=== PATIENT | female | born 1960 | race Caucasian/White ===

== ENCOUNTER 2024-02-20 17:38 | Emergency (ER) | payer OTHER ==
[~2024-02-20] VITALS: Ht 160 cm; Wt 59.0 kg
[~2024-02-20 17:38] MED LIST: ACET325 PO; AMLO5 PO; AMOCLA875 PO; ASPI81EC PO; ATOR40TA PO; CARB200 PO; CARB200ER PO; CARBAMAZEPINE400 M1 PO; CLOP75 PO; CYCL10 PO; DIAZ5 PO; METO25 PO; ONDA4ODT MM; ONDA8ODT MM; OXYC10TA19 PO; RXONDA4ODT MM; STOMUL PO; SULTRIDS PO; TRAM50 PO
[2024-02-20 23:00] VITALS: BP 160/85
== END 2024-02-20 23:12 | disposition home or self-care (01) ==
LOC: ER 17:38
DX: G40.109 Localization-related (focal) (partial) symptomatic epilepsy and epileptic syndromes with simple partial seizures, not intractable, without status epilepticus (principal); Z88.5 Allergy status to narcotic agent; Z79.899 Other long term (current) drug therapy
CPT/HCPCS: 70450; 99285-25

== ENCOUNTER 2024-06-19 06:44 | Emergency (ER) | payer OTHER ==
[~2024-06-19] VITALS: Ht 154.9 cm; Wt 53.0 kg
[2024-06-19 07:37] LABS: BASOPHILS ABSOLUTE AUTO 0.06 K/mm3 (0.00-0.23); BASOPHILS PERCENT AUTO 1 % (0-2); EOSINOPHILS ABSOLUTE AUTO 0.08 K/mm3 (0.00-0.68); EOSINOPHILS PERCENT AUTO 1 % (0-6); Hematocrit 42.2 % (33.0-51.0); Hemoglobin 12.9 g/dL (11.5-16.0); IMMATURE GRAN ABSOLUTE AUTO 0.01 K/mm3 (0.00-0.10); IMMATURE GRAN PERCENT AUTO 0 % (0-1); LYMPHOCYTES ABSOLUTE AUTO 1.95 K/mm3 (0.84-5.20); LYMPHOCYTES PERCENT AUTO 33 % (21-46); MONOCYTES ABSOLUTE AUTO 0.44 K/mm3 (0.16-1.47); MONOCYTES PERCENT AUTO 7 % (4-13); Mean Corpuscular HGB 21.2 pg (26.0-34.0); Mean Corpuscular HGB Conc 30.6 g/dL (31.5-36.5); Mean Corpuscular Volume 69 fL (80-100); Mean Platelet Volume 9.7 fL (9.1-12.4); NEUTROPHILS ABSOLUTE AUTO 3.44 K/mm3 (1.96-9.15); NEUTROPHILS PERCENT AUTO 58 % (41-73); Platelet Count 284 K/mm3 (150-400); RDW Standard Deviation 36.6 fL (35.1-46.3); Red Blood Cell Count 6.08 M/mm3 (3.80-5.20); White Blood Cell Count 5.98 K/mm3 (4.00-11.30)
[2024-06-19 07:54] LABS: Albumin, Blood 3.9 g/dL (3.4-5.0); Albumin/Globulin Ratio 1.1 (0.8-1.8); Bilirubin, Total 0.3 mg/dL (0.1-1.0); Calcium, Blood 9.5 mg/dL (8.5-10.1); Creatinine, Blood 0.58 mg/dL (0.40-1.00); Globulin, Blood 3.5 g/dL (2.2-4.0); Potassium, Blood 4.2 mmol/L (3.5-5.5); Total Protein, Blood 7.4 g/dL (6.4-8.2)
[2024-06-19] MEDS ORDERED: Aspirin 325 MG Tab PO ONE (08:10)
[2024-06-19] MEDS ORDERED: PRED20 PO (10:18)
[2024-06-19] MEDS ORDERED: VALA500 PO (10:18)
[2024-06-19] MEDS ORDERED: SYSTANE GEL10 GM LEFTEYE (10:18)
[2024-06-19] MEDS ORDERED: TEARS LUBRICANT15 ML LEFTEYE (10:18)
[2024-06-19 10:35] VITALS: BP 147/89
== END 2024-06-19 10:41 | disposition home or self-care (01) ==
LOC: ER 06:44
PROVIDERS: Student in an Organized Health Care Education/Training Program
DX: G51.0 Bell's palsy (principal); G45.0 Vertebro-basilar artery syndrome; I10 Essential (primary) hypertension; E11.9 Type 2 diabetes mellitus without complications; E78.5 Hyperlipidemia, unspecified; Z88.0 Allergy status to penicillin; Z88.5 Allergy status to narcotic agent; Z79.899 Other long term (current) drug therapy; Z79.891 Long term (current) use of opiate analgesic; Z79.51 Long term (current) use of inhaled steroids; Z79.1 Long term (current) use of non-steroidal anti-inflammatories (NSAID); Z79.83 Long term (current) use of bisphosphonates
CPT/HCPCS: 70450; 70496; 70498; 70551; 80053; 85025; 93005; 93010; 99284-25; A9270; Q9967